=== PATIENT | female | born 1960 ===

== ENCOUNTER 2018-03-12 06:19 | Observation (INO) | payer BC, OTHER ==
[2018-03-11 07:35] VITALS: BMI 28.3
[2018-03-12] MEDS ORDERED: Bacitracin 50,000 UNIT in Sodium Chloride 0.9% Irrig 1,000 ML IR SCH (07:30)
[2018-03-12] MEDS ORDERED: Midazolam 2 MG/2 ML VIAL ONE (07:41)
[2018-03-12] MEDS ORDERED: Propofol 10 mg/ml Inj (20 ML) ONE (07:41)
[2018-03-12] MEDS ORDERED: Bupivacaine-Epi 0.5%-1:200,000 PF Inj ONE (08:36)
[2018-03-12] MEDS ORDERED: ceFAZolin 1 gm FROZEN Premix 1 GM/50 ML ML IVPB ONE ×2 (08:36→08:47)
[2018-03-12] MEDS ORDERED: Clindamycin 2% Vaginal Cream(40 gm) ONE (08:36)
[2018-03-12] MEDS ORDERED: Neostigmine Methylsulfate 3mg/3ml Syringe IV ONE (09:51)
--- NOTE | 2018-03-12 09:58 | PCM.OP ---
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
[2018-03-12] MEDS ORDERED: Oxycodone/Acetaminophen 5/325 mg Tab PO PRN (10:11)
[2018-03-12] MEDS ORDERED: HYDROmorphone 0.5 mg/0.5 ml ISec IVP PRN (10:13)
[2018-03-12] MEDS ORDERED: Sodium Chloride 0.9% 1,000 ML IV SCH (10:15)
[2018-03-12 11:43] LABS: HEPATITIS B SURFACE AG Negative (NEGATIVE)
[2018-03-12 11:49] LABS: HEPATITIS A IGM NEGATIVE (NEGATIVE); HEPATITIS B CORE AB NEGATIVE (NEGATIVE)
[2018-03-12 12:01] LABS: HEPATITIS C ANTIBODY NEGATIVE (NEGATIVE)
[2018-03-12] MEDS ORDERED: Morphine 4 MG/ML VIAL IVP PRN (16:15)
[2018-03-12] MEDS: ceFAZolin 2 GM in Sodium Chloride 0.9% 100 ML IVPB SCH ×2 (16:33→23:20)
[2018-03-13 00:10] VITALS: O2SAT 100
[2018-03-13 07:38] LABS: MEAN CELL VOLUME 89.3 fL (81.0-99.0); MEAN CORPUSCULAR HEMOGLOBIN 29.9 pg (27.0-31.0); MEAN CORPUSCULAR HGB CONC 33.5 g/dL (33.0-37.0); MEAN PLATELET VOLUME 7.5 fL (7.2-11.7); RBC 4.34 Mil/uL (3.80-5.20); RED CELL DISTRIBUTION WIDTH 13.3 % (11.5-14.5)
[2018-03-13 07:43] LABS: WHITE BLOOD COUNT 13.5 K/uL (4.8-10.8)
--- NOTE | 2018-03-13 08:26 | CP.PCM.PN ---
Subjective - Date & Time of Evaluation Date of Evaluation: 03/13/18 Time of Evaluation: 08:00 - Subjective Subjective: Patient states pain is well controlled. Good appetite, denies CP/SOB/dizziness/n/v. Fernandes removed yesterday, patient voiding without dif ficulty. Objective - Vital Signs/Intake and Output Vital Signs (last 24 hours): Temp Pulse Resp BP Pulse Ox 97.1 F L 103 H 20 143/73 100 03/13/18 00:00 03/13/18 00:00 03/13/18 00:00 03/13/18 00:00 03/13/18 00:00 Intake and Output: 03/13/18 03/13/18 06:59 18:59 Intake Total 2325 Output Total 1475 Balance 850 - Medications Medications: Current Medications Cefazolin Sodium 2 gm/ Sodium (Chloride) 100 mls @ 200 mls/hr IVPB Q8H EZEQUIEL; Protocol Stop: 03/13/18 08:29 Last Admin: 03/12/18 23:20 Dose: 200 mls/hr Losartan Potassium (Cozaar) 25 mg PO DAILY EZEQUIEL Morphine Sulfate (Morphine) 4 mg IVP Q4H PRN PRN Reason: Pain, severe (8-10) Ondansetron HCl (Zofran Inj) 4 mg IVP Q6H PRN PRN Reason: Nausea/Vomiting Oxycodone/Acetaminophen (Percocet 5/325 Mg Tab) 2 tab PO Q4 PRN PRN Reason: Pain, moderate (4-7) Stop: 03/15/18 10:12 - Labs Labs: 03/13/18 07:31 - Exam Additional comments: packing removed, small amount of blood noted on packing. No active bleeding. No erythema. Assessment and Plan (1) Urinary incontinence Assessment & Plan: POD#1 s/p AP repair d/c home f/u 2 weeks, call for appt call for increased bleeding/fever/chills rx percocet, take colace with percocet, cont home meds d/w Dr. Johnson, agrees with above Status: Acute (2) Cystocele Status: Acute
[2018-03-13 08:50] VITALS: BP 138/75; PULSE 67; RESP 18; TEMP 97.2
[2018-03-13] MEDS: ceFAZolin 2 GM in Sodium Chloride 0.9% 100 ML IVPB SCH (09:00)
== END 2018-03-13 12:00 | disposition home or self-care (01) ==
LOC: C.SDS 06:19 → INTOOBSV 10:11 → C.9S 10:11 → C.4M 10:34
PROVIDERS: ADMIT Obstetrics & Gynecology; ATTEND Obstetrics & Gynecology
PROC: 0UBG0ZZ Excision of Vagina, Open Approach (ICD-10-PCS; 2018-03-12)
PROC: 0TSD0ZZ Reposition Urethra, Open Approach (ICD-10-PCS; 2018-03-12)
PROC: 0JQC0ZZ Repair Pelvic Region Subcutaneous Tissue and Fascia, Open Approach (ICD-10-PCS; principal; 2018-03-12 07:30)
DX: N81.3 Complete uterovaginal prolapse (principal); N36.1 Urethral diverticulum; N39.3 Stress incontinence (female) (male); A58 Granuloma inguinale; N32.81 Overactive bladder
CPT/HCPCS: 36415; 53230; 57260; 57288; 80074; 85027; 86592; 86703; 86706; 88304; 96365; C1771; C2615; G0378; J0690; J1170; J2250; J2405; J2704; J2710; J3010